=== PATIENT | male | born 1955 | race Caucasian/White ===

== ENCOUNTER 2016-10-08 11:24 | Emergency (ER) | payer MEDICAID, MEDICARE ==
[~2016-10-08] VITALS: Ht 177.8 cm; Wt 103.0 kg
[~2016-10-08 11:24] MED LIST: ABIL5TAB6 PO; AMLO10TA2 PO; BENT20TA PO; LEVO150T7 PO; METH-737 PO; MIRTA15 PO; PROT40TA PO; RANI150T PO; RAPA8CAP PO; TEST200I12 IM; ZOFR4TAB3 SL
[2016-10-08 11:26] VITALS: BP 213/114; PULSE 97; RESP 24; TEMP 98; O2SAT 100
[2016-10-08 11:30] VITALS: BP 202/113
[2016-10-08] MEDS ORDERED: SODIUM CHLOR 0.9% 1000 ML INJ 1,000 ML IV SCH (11:46)
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
[2016-10-08] MEDS ORDERED: SODIUM CHLORIDE 0.9% FLUSH 10 ML FLUSH IV FLUSH PRN (12:00)
[2016-10-08] MEDS ORDERED: ONDANSETRON HCL 4 MG/2 ML VIAL IVP ONE (12:00)
[2016-10-08] MEDS ORDERED: HYDROmorphone HCL PF 1 MG/ML VIAL IVS ONE (12:00)
[2016-10-08] MEDS ORDERED: ALUMINUM/MAGNESIUM/SIMETH 30 ML CUP PO ONE (12:00)
[2016-10-08] MEDS ORDERED: LIDOCAINE VISCOUS 2% SOLN 15 ML UDC PO ONE (12:00)
[2016-10-08] MEDS ORDERED: PROCHLORPERAZINE INJ 10 MG/2 ML VIAL IV PUSH ONE (12:15)
[2016-10-08 12:17] VITALS: RESP 26; O2SAT 100
[2016-10-08 12:18] VITALS: BP 201/100; PULSE 83; RESP 18; O2SAT 100
[2016-10-08 12:43] LABS: AUTOMATED NEUTROPHIL # 7.9 TH/MM3 (1.8-7.7); BASOPHIL % 0.2 % (0.0-2.0); EOSINOPHIL % 0.1 % (0.0-4.0); HEMATOCRIT 39.5 % (39.0-51.0); HEMO FLAGS DIFF FINAL; LYMPH % 7.8 % (9.0-44.0); LYMPHOCYTE # 0.7 TH/MM3 (1.0-4.8); MEAN CELL VOLUME 88.5 FL (80.0-100.0); MEAN CORPUSCULAR HEMOGLOBIN 31.7 PG (27.0-34.0); MEAN CORPUSCULAR HGB CONC 35.9 % (32.0-36.0); MONO % 5.2 % (0.0-8.0); NEUT % 86.7 % (16.0-70.0); PLATELET COUNT 220 TH/MM3 (150-450); RED BLOOD COUNT 4.47 MIL/MM3 (4.50-5.90); WHITE BLOOD COUNT 9.1 TH/MM3 (4.0-11.0)
[2016-10-08] MEDS ORDERED: HYDROmorphone HCL PF 1 MG/ML VIAL IV PUSH ONE (13:00)
[2016-10-08] MEDS ORDERED: SODIUM CHLOR 0.9% 1000 ML INJ 1,000 ML IV ONE (13:00)
[2016-10-08 13:03] LABS: ALT (GPT) 29 U/L (12-78); ANION GAP 15 MEQ/L (5-15); AST (GOT) 21 U/L (15-37); BLOOD UREA NITROGEN 18 MG/DL (7-18); CHLORIDE 98 MEQ/L (98-107); GLOMERULAR FILTRATION RATE 48 ML/MIN (>89); POTASSIUM 3.7 MEQ/L (3.5-5.1); SODIUM (NA) 135 MEQ/L (136-145)
[2016-10-08 13:05] LABS: ALKALINE PHOSPHATASE 86 U/L (45-117); TOTAL BILIRUBIN ADULT 0.6 MG/DL (0.2-1.0)
[2016-10-08 13:07] VITALS: BP 149/84; PULSE 87; RESP 18; O2SAT 98
[2016-10-08] MEDS ORDERED: PROM2SUP RECTAL (14:07)
== END 2016-10-08 15:10 | disposition home or self-care (01) ==
LOC: NEPE 11:24
DX: R10.9 Unspecified abdominal pain (principal); R11.2 Nausea with vomiting, unspecified; J45.909 Unspecified asthma, uncomplicated; I10 Essential (primary) hypertension; K21.9 Gastro-esophageal reflux disease without esophagitis; G62.9 Polyneuropathy, unspecified; E07.9 Disorder of thyroid, unspecified
CPT/HCPCS: 80053; 83605; 83690; 85025; 96374; 96375; 96376; 99284; J0780; J1170; J2405; J7030

== ENCOUNTER 2016-10-08 17:54 | Emergency (ER) | payer MEDICARE ==
[~2016-10-08] VITALS: Ht 177.8 cm; Wt 100.0 kg
[~2016-10-08 17:54] MED LIST changes: +PROM2SUP RECTAL
[2016-10-08 17:55] VITALS: BP 220/121; PULSE 121; RESP 24; TEMP 98.6; O2SAT 98
[2016-10-08 17:56] VITALS: BP_SYST 239; BP_DIAS 132; BP_DIAS 32
[2016-10-08] MEDS ORDERED: DIAZEPAM 5 MG TAB PO ONE (18:30)
[2016-10-08] MEDS ORDERED: hydrALAZINE HCL 50 MG TAB PO ONE (18:30)
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
[2016-10-08 20:34] VITALS: BP 158/76
== END 2016-10-08 20:35 | disposition home or self-care (01) ==
LOC: NEPE 17:54
DX: I10 Essential (primary) hypertension (principal); R51 Headache; H93.19 Tinnitus, unspecified ear; J45.909 Unspecified asthma, uncomplicated; K21.9 Gastro-esophageal reflux disease without esophagitis; G62.9 Polyneuropathy, unspecified; E07.9 Disorder of thyroid, unspecified
CPT/HCPCS: 99282

== ENCOUNTER 2017-10-22 13:30 | Emergency (ER) | payer MEDICARE ==
[~2017-10-22 13:30] MED LIST changes: -ABIL5TAB6 PO; +ALBUAER3 INH; +AMOX875T2 PO; -BENT20TA PO; +BENZ100 PO; -MIRTA15 PO; +PRED20 PO; -PROM2SUP RECTAL; -RAPA8CAP PO; +WELLTAB39 PO; -ZOFR4TAB3 SL
[2017-10-22 13:46] VITALS: BP 170/114; PULSE 72; RESP 20; TEMP 98.4; O2SAT 99
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
--- NOTE | 2017-10-22 15:22 | RADRPT ---
EXAM DATE/TIME: 10/22/2017 14:32 [facility] COMPARISON: No previous studies available for comparison. INDICATIONS : Joint Pain. Patient states he thinks he stepped on something while he was barefoot. Swelling and pain . MEDICAL HISTORY : Hypertension. Neuropathy. SURGICAL HISTORY : Lumbar fusion. ENCOUNTER: Initial ACUITY: 4 - 6 days PAIN SCORE: 8/10 LOCATION: Left Foot. FINDINGS: 3 views of the left foot. Small osteophytes of the great toe metatarsophalangeal joint. Bone alignmen t within normal limits. No evidence of fracture. Small plantar and Achilles calcaneal spurs. Diffuse arterial calcification. No radiopaque foreign body identified. CONCLUSION: No evidence of fracture. No radiopaque foreign body identified. Daniel Zhu MD on October 22, 2017 at 15:19 Board Certified Radiologist. This report was verified electronically.
== END 2017-10-22 15:44 | disposition home or self-care (01) ==
LOC: NEPK 13:30
DX: M72.2 Plantar fascial fibromatosis (principal); E07.9 Disorder of thyroid, unspecified; I10 Essential (primary) hypertension; K21.9 Gastro-esophageal reflux disease without esophagitis; J45.909 Unspecified asthma, uncomplicated
CPT/HCPCS: 73630; 99283